=== PATIENT | male | born 1975 | race Caucasian/White ===

== ENCOUNTER 2018-02-04 08:08 | Emergency (ER) | payer MEDICAID ==
[~2018-02-04] VITALS: Ht 180.3 cm; Wt 91.8 kg
[~2018-02-04 08:08] MED LIST: CLOT45CR5 TOP; CYCL-1 PO; DIP0.05CR TP; HYDR-565 PO; OMEP-84 PO; WHEE1EAC12 MC
[2018-02-04 08:34] VITALS: BP 127/74
[2018-02-04] MEDS ORDERED: EPI IJ ONE (08:55)
[2018-02-04] MEDS ORDERED: BUPIVACAINE IJ ONE (08:55)
[2018-02-04] MEDS ORDERED: CLIN-80 PO (09:32)
[2018-02-04] MEDS ORDERED: HYDROcodone/acetaminophen 10/325mg tab PO ONE (09:35)
[2018-02-04] MEDS ORDERED: HYDR-3965 PO (10:00)
== END 2018-02-04 10:14 | disposition home or self-care (01) ==
LOC: ER 08:08
DX: K04.7 Periapical abscess without sinus (principal); K21.9 Gastro-esophageal reflux disease without esophagitis; Z86.19 Personal history of other infectious and parasitic diseases; Z90.49 Acquired absence of other specified parts of digestive tract; Z88.0 Allergy status to penicillin; Z79.899 Other long term (current) drug therapy
CPT/HCPCS: 41800; 99283; A6449

== ENCOUNTER 2019-01-15 21:31 | Emergency (ER) | payer MEDICAID ==
[~2019-01-15] VITALS: Ht 180.3 cm; Wt 88.0 kg
[~2019-01-15 21:31] MED LIST changes: +CLIN-96 PO; +HYDR-4353 PO; -HYDR-565 PO
[2019-01-15] MEDS ORDERED: ondansetron 4mg rapidly disintigrating tab PO ONE (22:05)
[2019-01-15] MEDS ORDERED: ketorolac trometh inj. 60 MG/2 ML VIAL IM ONE (22:05)
[2019-01-15] MEDS ORDERED: acetaminophen 325mg tablet PO ONE (22:05)
[2019-01-15 23:05] LABS: CLARITY,URINE CLEAR (Clear); COLOR,URINE YELLOW (Yellow); GLUCOSE, URINE NEGATIVE (Neg); KETONES,URINE TRACE mg/dl (Neg); LEUKOCYTE ESTERASE ,URINE NEGATIVE (Neg); NITRITES, URINE NEGATIVE (Neg); OCCULT BLOOD,URINE NEGATIVE (Neg); PROTEIN,URINE NEGATIVE (Neg); UROBILINOGEN,URINE 0.2 E.U/dL (0.2-1.0)
[2019-01-15 23:09] LABS: UA COLLECTION TYPE NON-SPECIFIED
[2019-01-15] MEDS ORDERED: DOXYCYCLINE 100MG CAPSULE PO STA (23:20)
[2019-01-15] MEDS ORDERED: CefTRIAXone 1000mg IM Kit (w/lidocaine diluent) IM ONE (23:20)
[2019-01-15] MEDS ORDERED: DOXY100C43 PO (23:25)
[2019-01-15 23:26] LABS: URINE AMPHETAMINE SCREEN POSITIVE (Neg); URINE BARBITUATE SCREEN NEGATIVE (Neg); URINE BENZODIAZEPINES SCREEN NEGATIVE (Neg); URINE CANNABINOID SCREEN POSITIVE (Neg); URINE COCAINE SCREEN NEGATIVE (Neg); URINE METHADONE SCREEN NEGATIVE (Neg); URINE OPIATE SCREEN NEGATIVE (Neg); URINE PHENCYCLIDINE SCREEN NEGATIVE (Neg)
[2019-01-15 23:40] VITALS: BP 112/58
== END 2019-01-15 23:41 | disposition home or self-care (01) ==
LOC: ER 21:32
DX: N45.1 Epididymitis (principal); N43.2 Other hydrocele; K21.9 Gastro-esophageal reflux disease without esophagitis; Z90.49 Acquired absence of other specified parts of digestive tract; Z98.890 Other specified postprocedural states; Z88.0 Allergy status to penicillin; Z79.899 Other long term (current) drug therapy
CPT/HCPCS: 76870; 80305; 81003; 96372; 99284; J0696; J1885

== ENCOUNTER 2019-03-27 03:16 | Emergency (ER) | payer MEDICAID ==
[~2019-03-27] VITALS: Ht 180.3 cm; Wt 84.0 kg
[2019-03-27 03:20] VITALS: BP 113/75
[2019-03-27] MEDS ORDERED: CLIN-96 PO (06:04)
== END 2019-03-27 06:16 | disposition home or self-care (01) ==
LOC: ER 03:17
DX: L03.211 Cellulitis of face (principal); K21.9 Gastro-esophageal reflux disease without esophagitis; F17.200 Nicotine dependence, unspecified, uncomplicated; F12.90 Cannabis use, unspecified, uncomplicated; Z86.19 Personal history of other infectious and parasitic diseases; Z90.49 Acquired absence of other specified parts of digestive tract; Z98.890 Other specified postprocedural states; Z79.899 Other long term (current) drug therapy
CPT/HCPCS: 99283

== ENCOUNTER 2019-05-02 14:56 | Emergency (ER) | payer MEDICAID ==
[~2019-05-02] VITALS: Ht 180.3 cm; Wt 81.8 kg
[2019-05-02 15:11] VITALS: BP 111/59
[2019-05-02] MEDS ORDERED: CEPH-572 PO (16:12)
[2019-05-02] MEDS ORDERED: SULF1TAB49 PO (16:12)
== END 2019-05-02 16:23 | disposition home or self-care (01) ==
LOC: ER 14:56
DX: L03.115 Cellulitis of right lower limb (principal); K21.9 Gastro-esophageal reflux disease without esophagitis; F12.90 Cannabis use, unspecified, uncomplicated; Z90.49 Acquired absence of other specified parts of digestive tract; Z79.899 Other long term (current) drug therapy
CPT/HCPCS: 99283

== ENCOUNTER 2019-06-26 13:11 | Emergency (ER) | payer MEDICAID ==
[~2019-06-26] VITALS: Ht 180.3 cm; Wt 85.0 kg
[2019-06-26 13:14] VITALS: BP 119/83
[2019-06-26] MEDS ORDERED: ACET-3067 PO (14:11)
[2019-06-26] MEDS ORDERED: PENI500T2 PO (14:11)
== END 2019-06-26 14:18 | disposition home or self-care (01) ==
LOC: ER 13:12
DX: K02.9 Dental caries, unspecified (principal); K21.9 Gastro-esophageal reflux disease without esophagitis; F12.90 Cannabis use, unspecified, uncomplicated; Z90.49 Acquired absence of other specified parts of digestive tract; Z98.890 Other specified postprocedural states; Z86.19 Personal history of other infectious and parasitic diseases; Z79.899 Other long term (current) drug therapy
CPT/HCPCS: 99283

== ENCOUNTER 2020-01-28 14:40 | Emergency (ER) | payer SELFPAY ==
[~2020-01-28] VITALS: Ht 180.3 cm; Wt 86.4 kg
[~2020-01-28 14:40] MED LIST changes: -CLIN-96 PO; +CLIN-97 PO; +CLOT45CR32 TOP; -CLOT45CR5 TOP
[2020-01-28 15:18] VITALS: BP 135/83
[2020-01-28] MEDS ORDERED: AMOX-117 PO (16:37)
[2020-01-28] MEDS ORDERED: HYDR-4383 PO (16:37)
== END 2020-01-28 16:57 | disposition home or self-care (01) ==
LOC: ER 14:41
DX: K02.9 Dental caries, unspecified (principal); K21.9 Gastro-esophageal reflux disease without esophagitis; F12.90 Cannabis use, unspecified, uncomplicated; Z90.49 Acquired absence of other specified parts of digestive tract; Z98.890 Other specified postprocedural states
CPT/HCPCS: 99283

== ENCOUNTER 2020-10-28 13:41 | Emergency (ER) | payer MEDICAID ==
[~2020-10-28] VITALS: Ht 180.3 cm; Wt 91.5 kg
[~2020-10-28 13:41] MED LIST changes: +HYDR-4383 PO
[2020-10-28] MEDS ORDERED: DOXY100C77 PO (15:13)
[2020-10-28 15:22] VITALS: BP 121/80
== END 2020-10-28 15:24 | disposition home or self-care (01) ==
LOC: ER 13:41
DX: N34.2 Other urethritis (principal); K21.9 Gastro-esophageal reflux disease without esophagitis; F12.90 Cannabis use, unspecified, uncomplicated; Z79.2 Long term (current) use of antibiotics; Z79.899 Other long term (current) drug therapy; Z86.19 Personal history of other infectious and parasitic diseases; Z90.49 Acquired absence of other specified parts of digestive tract
CPT/HCPCS: 36415; 87210; 87491; 99283

== ENCOUNTER 2023-01-07 11:19 | Emergency (ER) | payer MEDICAID ==
[~2023-01-07] VITALS: Ht 180.3 cm; Wt 90.9 kg
[2023-01-07] MEDS ORDERED: ibuprofen tablet 400 MG TABLET PO ONE (12:00)
[2023-01-07] MEDS ORDERED: acetaminophen 325mg tablet PO ONE (12:00)
[2023-01-07 13:25] VITALS: BP 118/62
== END 2023-01-07 13:27 | disposition home or self-care (01) ==
LOC: ER 11:19
DX: K40.90 Unilateral inguinal hernia, without obstruction or gangrene, not specified as recurrent (principal); K21.9 Gastro-esophageal reflux disease without esophagitis; Z90.49 Acquired absence of other specified parts of digestive tract; F12.10 Cannabis abuse, uncomplicated; Z79.899 Other long term (current) drug therapy
CPT/HCPCS: 76870; 93976; 99284

== ENCOUNTER 2023-01-13 12:07 | Emergency (ER) | payer MEDICAID ==
[~2023-01-13] VITALS: Ht 180.3 cm; Wt 86.2 kg
[2023-01-13 12:45] VITALS: BP 119/84
[2023-01-13 14:47] LABS: BASOPHILS # (AUTO) 0.1 X10'3 (0-0.2); BASOPHILS % (AUTO) 1.3 % (0-1); EOSINOPHILS # (AUTO) 0.6 X10'3 (0-0.9); EOSINOPHILS % (AUTO) 7.4 % (0-6); HEMATOCRIT 45.3 % (42.0-52.0); HEMOGLOBIN 15.4 g/dl (14.0-17.9); LYMPHOCYTES # (AUTO) 2.3 X10'3 (1.1-4.8); MEAN CORPUSCULAR HEMOGLOBIN 31.7 PG (27.0-31.0); MEAN CORPUSCULAR VOLUME 93.3 FL (78-98); MEAN PLATELET VOLUME 8.6 FL (7.4-10.4); MONOCYTES # (AUTO) 0.8 X10'3 (0-0.9); MONOCYTES % (AUTO) 9.9 % (2-12); NEUTROPHILS % (AUTO) 51.4 % (42-75); PLATELET COUNT 223 X10'3 (140-440); RED BLOOD COUNT 4.85 X10'6 (4.70-6.10); RED CELL DISTRIBUTION WIDTH 13.4 % (11.5-14.5); WHITE BLOOD COUNT 7.7 X10'3 (4.5-11.0)
[2023-01-13 15:02] LABS: ALANINE AMINOTRANSFERASE 225 U/L (12-78); ALBUMIN/GLOBULIN RATIO 1.2 (1.1-1.5); ALKALINE PHOSPHATASE 114 IU/L (46-116); ANION GAP 9 (8-16); ASPARTATE AMINO TRANSFERASE 95 U/L (10-37); BILIRUBIN,TOTAL 0.6 MG/DL (0.1-1.0); BLOOD UREA NITROGEN 10 MG/DL (7-18); BUN/CREATININE RATIO 12.7 (10.0-20.0); CALCIUM 8.9 MG/DL (8.5-10.1); CHLORIDE 105 MMOL/L (99-107); CREATININE 0.79 MG/DL (0.60-1.10); GLUCOSE 104 MG/DL (70-104); LIPASE 138 U/L (73-393); POTASSIUM 4.1 MMOL/L (3.5-5.1); SODIUM 143 MMOL/L (135-145); TOTAL CARBON DIOXIDE 29.2 MMOL/L (24-32); TOTAL PROTEIN 7.3 G/DL (6.4-8.2); eGFR > 90 ML/MIN
== END 2023-01-13 15:17 | disposition home or self-care (01) ==
LOC: ER 12:08
DX: K75.9 Inflammatory liver disease, unspecified (principal); R10.11 Right upper quadrant pain; K21.9 Gastro-esophageal reflux disease without esophagitis; F12.90 Cannabis use, unspecified, uncomplicated; Z98.890 Other specified postprocedural states
CPT/HCPCS: 36415; 76700; 80053; 83690; 85025; 99284

== ENCOUNTER 2023-11-27 16:17 | Emergency (ER) | payer MEDICAID ==
[~2023-11-27] VITALS: Ht 180.3 cm; Wt 92.0 kg
[2023-11-27 16:18] VITALS: BP 147/92; PULSE 72; RESP 16; TEMP 98.2; O2SAT 99
[2023-11-27] MEDS ORDERED: NAPR-56 PO (16:23)
[2023-11-27] MEDS ORDERED: DOXY-1 PO (16:23)
== END 2023-11-27 16:34 | disposition home or self-care (01) ==
LOC: ER 16:18
DX: K04.7 Periapical abscess without sinus (principal); K21.9 Gastro-esophageal reflux disease without esophagitis; F12.90 Cannabis use, unspecified, uncomplicated; Z90.49 Acquired absence of other specified parts of digestive tract; Z79.899 Other long term (current) drug therapy; Z79.2 Long term (current) use of antibiotics
CPT/HCPCS: 99283

== ENCOUNTER 2024-03-25 03:19 | Emergency (ER) | payer MEDICAID, OTHER ==
[~2024-03-25] VITALS: Ht 180.3 cm; Wt 91.8 kg
[2024-03-25 03:33] VITALS: BP 122/82; PULSE 62; TEMP 98.9; O2SAT 99
[2024-03-25 03:41] VITALS: RESP 18
== END 2024-03-25 04:46 | disposition left against medical advice (07) ==
LOC: ER 03:20
DX: K13.79 Other lesions of oral mucosa (principal); Z53.21 Procedure and treatment not carried out due to patient leaving prior to being seen by health care provider